=== PATIENT | female | born 1940 | race Caucasian/White ===

== ENCOUNTER 2023-10-25 15:24 | Emergency (ER) | payer MEDICARE, SELFPAY ==
--- NOTE | ~2023-10-25 | XR_ITS ---
EXAMINATION: XR hand RT min 3V DATE: 10/25/2023 17:06 INDICATION: Right hand injury and pain. TECHNIQUE: 3 views of right hand were obtained. COMPARISON: None. FINDINGS: There is a transverse fracture of base of fifth metacarpal. The distal fracture fragment de monstrates impaction and 2 mm dorsal displacement. There is severe osteoarthritis of distal radioulna r joint and first carpometacarpal joint. There is severe osteoarthritis of first metacarpophalangeal joint. There is osteoarthritis of all of the interphalangeal joints, severe at fifth proximal interph alangeal joint and second-fourth distal interphalangeal joints. IMPRESSION: 1. Transverse fracture of base of fifth metacarpal. 2. Polyarticular osteoarthritis. Reviewed, dictated and finalized at location A.
--- NOTE | ~2023-10-25 | CT_ITS ---
EXAMINATION: CT thoracic lumbar wo con DATE: 10/25/2023 16:34 INDICATION: Back injury. TECHNIQUE: Computed tomography (CT) of the thoracic and lumbar spine was performed without intravenou s contrast. Automated exposure control and iterative reconstruction technique were employed. The dose -length product was 2069.24 mGy-cm. COMPARISON: None FINDINGS: CT THORACIC SPINE: There is a small sliding hiatal hernia. Calcified right lung nodules and calcified right hilar and mediastinal lymph nodes are consistent with old granulomatous disease. There are old healed right rib fractures. Thoracic spine demonstrates 5 degrees dextrocurvature. There is mild chr onic anterior wedging of T11 and T12 vertebral bodies. There is disc height loss at many levels, kailee re at T6-T7, T7-T8, T9-T10, and T10-T11. There is multilevel facet joint osteoarthritis, severe at ma ny levels. There is mild neural foraminal stenosis at multiple levels on either side. There is mild c entral canal stenosis at T2-T3, T7-T8, and T11-T12. CT LUMBAR SPINE: There is 3 mm retrolisthesis of L1 on L2 and L2 on L3 and 5 mm anterolisthesis of L4 on L5 and L5 on S1. There is mild chronic height loss of L5 vertebral body posteriorly. There is mod erately decreased disc height at L1-L2, mildly decreased disc height at L2-L3 and L4-L5, and moderate ly decreased disc height at L5-S1. There is a 2.8 cm subcutaneous mass to the right of midline, likel y a sebaceous cyst. The following disc levels are specifically discussed: L1-L2: The disc is bulging. There is moderate bilateral facet joint osteoarthritis. There is moderate right and mild left neural foraminal stenosis. There is mild central canal stenosis. L2-L3: The disc is bulging. There is mild bilateral facet joint osteoarthritis. There is moderate karuna ateral neural foraminal stenosis. There is mild central canal stenosis. L3-L4: The disc is bulging. There is severe bilateral facet joint osteoarthritis. There is mild bilat eral neural foraminal stenosis. There is mild central canal stenosis. L4-L5: The disc is bulging. There is severe bilateral facet joint osteoarthritis. There is mild bilat eral neural foraminal stenosis. There is mild central canal stenosis. L5-S1: The disc is bulging. There is severe bilateral facet joint osteoarthritis. There is mild bilat eral neural foraminal stenosis. There is mild central canal stenosis. IMPRESSION: 1. No fracture. 2. Severe thoracic spondylosis and moderate lumbar spondylosis. Reviewed, dictated and finalized at location A.
--- NOTE | ~2023-10-25 | CT_ITS ---
EXAMINATION: CT facial & cervical spine wo DATE: 10/25/2023 16:44 INDICATION: Head injury. TECHNIQUE: Computed tomography (CT) of the maxillofacial region and cervical spine was performed with out intravenous contrast. Automated exposure control and iterative reconstruction technique were empl oyed. The dose-length product was 671.09 mGy-cm. COMPARISON: None FINDINGS: MAXILLOFACIAL CT: There is right frontal scalp hematoma. There are likely changes of ocular lens replacement surgeries. There is mild mucosal thickening in the paranasal sinuses. The mastoid air cells are normal. There a re nondisplaced fracture deformities of the nasal bones. CERVICAL SPINE CT: There is kyphosis of cervical spine. There is 2 mm anterolisthesis of C7 on T1. Vertebral body height s are normal. There is severely decreased disc height at C3-C4 and C5-C6 and moderately decreased dis c height at C6-C7. The following disc levels are specifically discussed: C2-C3: There is no uncovertebral joint osteoarthritis. There is severe bilateral facet joint osteoart hritis. There is mild left neural foraminal stenosis. There is no central canal stenosis. C3-C4: There is severe bilateral uncovertebral joint osteoarthritis. There is severe bilateral facet joint osteoarthritis. There is mild bilateral neural foraminal stenosis. There is mild central canal stenosis. C4-C5: There is no uncovertebral joint osteoarthritis. There is severe right and moderate left facet joint osteoarthritis. There is mild bilateral neural foraminal stenosis. There is no central canal st enosis. C5-C6: There is severe bilateral uncovertebral joint osteoarthritis. There is severe bilateral facet joint osteoarthritis. There is moderate right and mild left neural foraminal stenosis. There is mild central canal stenosis. C6-C7: There is mild bilateral uncovertebral joint osteoarthritis. There is severe right and mild lef t facet joint osteoarthritis. There is mild right neural foraminal stenosis. There is mild central ca nal stenosis. C7-T1: There is no uncovertebral joint osteoarthritis. There is severe bilateral facet joint osteoart hritis. There is mild bilateral neural foraminal stenosis. There is no central canal stenosis. IMPRESSION: 1. Fracture deformities of the nasal bones, likely chronic. 2. Severe cervical spondylosis. Reviewed, dictated and finalized at location A.
--- NOTE | ~2023-10-25 | CT_ITS ---
EXAMINATION: CT brain wo con DATE: 10/25/2023 16:29 INDICATION: Head injury. Fall. TECHNIQUE: Computed tomography (CT) of the head was performed without intravenous contrast. The mA wa s adjusted according to patient size. Iterative reconstruction technique was employed. The dose-lengt h product was 681.00 mGy-cm. COMPARISON: None FINDINGS: There are old lacunar infarcts in the bilateral basal ganglia. There are scattered areas of low attenuation in the cerebral white matter. There is no intracranial hemorrhage, acute infarction, or abnormal intracranial mass lesion. The ventricles are normal in size. There is a right frontal sc alp hematoma. There are likely changes of ocular lens replacement surgeries. There is mild mucosal th ickening in the paranasal sinuses. The mastoid air cells are normal. IMPRESSION: 1. 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 2. Moderate nonspecific cerebral white matter disease, which likely represents chronic small vessel i schemic disease. Reviewed, dictated and finalized at location A. IMPRESSION: 1. 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 2. Moderate nonspecific cerebral white matter disease, which likely represents chronic small vessel ischemic disease.
--- NOTE | ~2023-10-25 | XR_ITS ---
EXAMINATION: XR ribs RT 2V DATE: 10/25/2023 17:06 INDICATION: Fall. Chest injury. TECHNIQUE: 2 views of the right ribs on 3 radiographs were obtained. COMPARISON: None. FINDINGS: There are old healed fractures of right fourth-ninth ribs. There is an old healed fracture of proximal right humerus with plate and screw fixation. There is severe osteoarthritis of glenohumer al joint and moderate osteoarthritis of acromioclavicular joint. No right-sided pleural effusion or p neumothorax. IMPRESSION: 1. No acute rib fracture. Reviewed, dictated and finalized at location A. IMPRESSION: 1. No acute rib fracture.
--- NOTE | ~2023-10-25 | XR_ITS ---
EXAMINATION: XR elbow LT 2V DATE: 10/25/2023 17:06 INDICATION: Left elbow injury. Fall. TECHNIQUE: 2 views of left elbow were obtained. COMPARISON: None. FINDINGS: There is an oblique fracture of olecranon of proximal ulna. The distal fracture fragment de monstrates 3.1 cm distraction. There is mild elbow joint osteoarthritis. There is an elbow joint effu riky. Olecranon bursitis is noted. IMPRESSION: 1. Oblique fracture of olecranon of proximal ulna. Reviewed, dictated and finalized at location A.
[2023-10-25 15:56] VITALS: BP 174/93; PULSE 82; RESP 16; TEMP 36.8; O2SAT 96
[2023-10-25] MEDS: ACETAMINOPHEN 500 MG TABLET 1000 MG PO ×2 (17:23→20:50)
[2023-10-25 19:04] VITALS: BP 175/82; PULSE 87; RESP 16; TEMP 36.8; O2SAT 95
[2023-10-25] MEDS: oxyCODONE HCL (*CRX) 5 MG TAB IR PO (19:13)
--- NOTE | 2023-10-25 19:26 | ED.FALL ---
HPI - Fall General Chief Complaint: Fall Stated Complaint: failure to thrive Time Seen by Provider: 10/25/23 15:42 History of Present Illness HPI Narrative: This is an 83-year-old female presenting from her assisted living facility after a ground level mechanical fall. Patient states she was ambulating when she tripped on the rug. She fell face 1st onto her right side but did not lose consciousness. She states that she tried to brace herself and landed onto her left elbow and right wrist. She was able to get up with some assistance. She does not take any blood thinner medications and has no history of seizure disorder. She states she is otherwise in her normal state of health and presently not having any complaints aside from some minor pain in her right-sided posterior ribs, left elbow, right wrist and her head. She is requesting Tylenol. Denies any chest pain, shortness a breath, nausea, vomiting, vision changes, abdominal pain, back pain. Fall was mechanical in nature and she did not have any syncope or prodromal symptoms. Related Data Allergies Allergy/AdvReac Type Severity Reaction Status Date / Time iodine Allergy Itching Verified 10/25/23 16:24 prednisone Allergy Itching Verified 10/25/23 16:24 Review of Systems Review of Systems: As reviewed above in the HPI Exam Narrative: GENERAL: [Well-appearing, well-nourished, and in no acute distress.] HEAD: Mild swelling of the supraorbital ridge on the right side, no tenderness deformity to the maxillary facial structures. No trismus, full range of motion of the jaw. No cervical spinal tenderness. Full range of motion of the neck. EYES: [PERRLA and EOMI.] ENT: Nares clear, no rhinorrhea or epistaxis. Mucous membranes moist. NECK: Supple. CHEST: [Clear to auscultation. No respiratory distress.] HEART: [Regular rate and rhythm]. No murmur heard. [Normal peripheral pulses.] ABDOMEN: [Soft, nondistended], [nontender], [No rigidity or guarding] EXTREMITIES: Left elbow has some swelling posterior to the olecranon process. Skin avulsion over the lateral aspect of the elbow without any dehiscence or exposing musculature. Full range of motion of the left upper extremity, full strength in left upper extremity. Skin avulsion to the lateral aspect of the right wrist proximally without any limited range of motion. Some tenderness over the 5th MCP joint without limited range of motion. Ambulating unassisted. SKIN: Skin avulsions as described above without lacerations. NEURO: [No focal deficits]. Alert and oriented [x3.] PSYCH: [Normal mood and affect.] Course Vital Signs Vital signs: Vital Signs Temperature 36.8 C 10/25/23 15:56 Pulse Rate 82 10/25/23 15:56 Respiratory Rate 16 10/25/23 15:56 Blood Pressure 174/93 H 10/25/23 15:56 Pulse Oximetry 96 10/25/23 15:56 Oxygen Delivery Room Air 10/25/23 15:56 Temperature 36.8 C 10/25/23 19:04 Pulse Rate 87 10/25/23 19:04 Respiratory Rate 16 10/25/23 19:04 Blood Pressure 175/82 H 10/25/23 19:04 Pulse Oximetry 95 10/25/23 19:04 Oxygen Delivery Room Air 10/25/23 15:56 MDM - Fall MDM Narrative Medical decision making narrative: This is an 83-year-old female who sustained a ground level mechanical fall with a closed head injury. Patient did brace herself with her left elbow and right wrist. She does have some skin avulsion and thin skin on the left elbow and right wrist. Evidence of a closed head injury with supraorbital ridge hematoma on the right side without any ocular involvement or facial bone involvement. Patient has full range of motion of her bilateral upper extremities including the elbow and wrist, MCP, PIP and D IP joint. She has complained of some rib cage pain and in addition to her closed head injury with obvious head trauma imaging studies were ordered including a head CT, thoracolumbar CT, cervical spine facial bone CT. X-rays of left elbow, right hand and right-georgie
--- NOTE | 2023-10-25 19:46 | PC.NURSE ---
KRISTENP has repaired skin tear to left elbow and put gauze on it. This RN asked if I should remove the gauze prior to applying the splint. MINA says the gauze will be fine to stay on until pt follows up with ortho.
--- NOTE | 2023-10-25 20:45 | PC.NURSE ---
long arm posterior splint applied to L elbow and ulnar gutter splint applied to R hand
== END 2023-10-25 22:50 | disposition home or self-care (01) ==
PROVIDERS: Emergency Provider Student in an Organized Health Care Education/Training Program
DX: S52.022A Displaced fracture of olecranon process without intraarticular extension of left ulna, initial encounter for closed fracture (principal); S62.316A Displaced fracture of base of fifth metacarpal bone, right hand, initial encounter for closed fracture; S00.11XA Contusion of right eyelid and periocular area, initial encounter; M19.031 Primary osteoarthritis, right wrist; M18.9 Osteoarthritis of first carpometacarpal joint, unspecified; M19.041 Primary osteoarthritis, right hand; W18.09XA Striking against other object with subsequent fall, initial encounter
CPT/HCPCS: 12001; 29105; 29125; 70450; 70486; 71100; 72125; 72128; 72131; 73070; 73130; 99284; A4565; A9270